=== PATIENT | female | born 1995 | race African-American/Black ===

== ENCOUNTER 2017-07-20 18:44 | Emergency (ER) | payer MEDICAID ==
[~2017-07-20] VITALS: Ht 160 cm; Wt 75.7 kg
[2017-07-20 18:47] VITALS: BP 120/79
[2017-07-20] MEDS ORDERED: predniSONE 20 MG TAB PO ONE (19:00)
[2017-07-20] MEDS ORDERED: FAMOTIDINE 20 MG TAB PO ONE (19:00)
[2017-07-20 20:00] VITALS: BP 103/67
== END 2017-07-20 20:00 | disposition home or self-care (01) ==
LOC: MED 18:44
DX: L50.9 Urticaria, unspecified (principal)
CPT/HCPCS: 81025; 99284; J7512; Q0163